=== PATIENT | male | born 1980 | race Caucasian/White ===

== ENCOUNTER 2017-12-07 18:38 | Emergency (ER) | payer SELFPAY ==
[2017-12-07 18:49] VITALS: BMI 25.8
--- NOTE | 2017-12-07 20:29 | PDOC ---
History of Present Illness - General Chief Complaint: Palpitations Stated Complaint: CHEST PAIN Time Seen by Provider: 12/07/17 20:28 - History of Present Illness Initial Comments: 37 year old male without any PMH presenting with palpitations and chest pain after a night of alcohol and cocaine usage from last night. He admits to using 6 -7 bags of cocaine and drinking approximately 20 beers up until 6 hours before presentation. Describes his chest pain as a substernal pressure, non-radiating, non-pleuritic, non-exertional and does not describe co-presenting SOB, nausea, vomiting, diaphoresis, constipation, or other symptoms. He states he only use cocaine and alcohol on the weekends. 12/07/17 20:44 Past History - Past Medical History Allergies/Adverse Reactions: Allergies Allergy/AdvReac Type Severity Reaction Status Date / Time No Known Allergies Allergy Verified 12/07/17 18:48 Home Medications: Ambulatory Orders NK [No Known Home Medication] 12/07/17 COPD: No - Suicide/Smoking/Psychosocial Hx Smoking History: Current every day smoker Information on smoking cessation initiated: No Review of Systems - Review of Systems Constitutional: No: Chills, Diaphoresis, Fever HEENTM: No: Recent change in vision, Double Vision, Cataracts Respiratory: No: Cough, Shortness of Breath Cardiac (ROS): Yes: Chest Pain, Irregular Heart Rate, Lightheadedness, Palpitations. No: Syncope, Chest Tightness ABD/GI: Yes: Nausea. No: Diarrhea, Vomiting : No: Dysuria, Discharge, Frequency Neurological: No: Headache, Numbness, Paresthesia, Tremors, Weakness Psychiatric: No: Anxiety, Depression Hematologic/Lymphatic: No: Anemia, Blood Clots, Easy Bleeding *Physical Exam - Vital Signs Last Vital Signs Temp Pulse Resp BP Pulse Ox 98.1 F 109 H 20 137/78 99 12/07/17 18:41 12/07/17 18:41 12/07/17 18:41 12/07/17 18:41 12/07/17 18:41 - Physical Exam General Appearance: Yes: Nourished, Appropriately Dressed. No: Apparent Distress HEENT: positive: EOMI, VALDEZ, Normal ENT Inspection, Normal Voice, Other (eyes appear sunken) Neck: positive: Trachea midline, Normal Thyroid, Supple. negative: Tender, Rigid Respiratory/Chest: positive: Lungs Clear, Normal Breath Sounds. negative: Chest Tender, Respiratory Distress, Accessory Muscle Use Cardiovascular: positive: Irregularly Irregular. negative: Regular Rhythm, Regular Rate Gastrointestinal/Abdominal: positive: Normal Bowel Sounds, Flat, Soft. negative : Tender Musculoskeletal: positive: Normal Inspection. negative: Decreased Range of Motion Extremity: positive: Normal Capillary Refill, Normal Inspection, Normal Range of Motion. 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 Vital signs, EKG, and labs only significant for non-specific repolarization abnormality with tachycardia. Two sets of troponins negative, and palpitations ceased after 1 L NS. EKG normalized no longer demonstrating PVCs (R 77, VA 198, QRS 96, QTc 448, normal axis, no ST elevations) Patient no longer symptomatic so he was DC'd with appropriate follow up and return precautions as well as drug counseling. 12/07/17 23:57 *DC/Admit/Observation/Transfer Diagnosis at time of Disposition: Palpitations, Cocaine abuse, ETOH abuse - Discharge Dispostion Disposition: HOME Condition at time of disposition: Improved Decision to Admit order: No - Referrals Referrals: [facility] [place] [Provider Group] - Patient Instructions Printed Discharge Instructions: DI for Alcohol Abuse, DI for Cocaine Use Disorder, DI for Drug Abuse and Drug Addiction Additional Instructions: Por favor mike de consumir cocana y alcohol. Estas drogas pueden matarte !!! Por favor tyson un seguimiento con elaine mdico de atencin primaria. Si no tiene je, use la clnica que colocamos en neeru formulario. Por favor regrese al departamento de emergencias si tiene sntomas nuevos o que empeoran. Print Language: BELARUSIAN - Post Discharge Activity
--- NOTE | 2017-12-07 20:43 | PDOC ---
Attending Attestation - Resident Resident Name: HelenaValenciacrystal - ED Attending Attestation I have performed the following: I have examined & evaluated the patient, The case was reviewed & discussed with the resident, I agree w/resident's findings & plan - HPI HPI: 12/07/17 22:58 Pt comes with chest pains after cocaine use. He uses regularly on weekends and combines it with alcohol; drinks 15-20 beers on weekends. Pt is employed and works on [employer]. He has no PMHx and he otherwise appears well. - Physicial Exam PE: 12/07/17 23:00 Agree with resident exam - Medical Decision Making 12/07/17 23:00 Pt will follow with budget assistant, so long as 2 enzymes are normal. He has frequent PVCs on EKG.
[2017-12-07 20:49] LABS: BASO % 0.3 % (0-2.0); EOS % 0.3 % (0-4.5); HEMATOCRIT 44.6 % (35.4-49); HEMOGLOBIN 14.8 GM/dL (11.7-16.9); LYMPH % 18.5 % (8-40); MCH 27.1 pg (25.7-33.7); MCHC 33.2 g/dl (32.0-35.9); MEAN CELL VOLUME 81.7 fl (80-96); MEAN PLT VOLUME 8.5 fl (7.5-11.1); MONO % 7.7 % (3.8-10.2); NEUT % 73.2 % (42.8-82.8); PLATELET COUNT 246 K/MM3 (134-434); RBC 5.46 M/mm3 (4.00-5.60); RDW 12.7 % (11.9-15.9); WHITE BLOOD COUNT 10.9 K/mm3 (4.0-10.0)
[2017-12-07 21:02] LABS: URINE APPEARANCE CLEAR; URINE BILIRUBIN NEGATIVE (<2.0 mg/dL); URINE COLOR YELLOW; URINE GLUCOSE (UA) NEGATIVE (NEGATIVE); URINE KETONE NEGATIVE (NEGATIVE); URINE LEUK ESTERASE NEGATIVE (NEGATIVE); URINE NITRITE NEGATIVE (NEGATIVE); URINE PROTEIN NEGATIVE (NEGATIVE); URINE UROBILINOGEN NEGATIVE mg/dL (0.2-1.0)
[2017-12-07 21:04] LABS: INR 1.11 (0.82-1.09); PROTHROMBIN TIME (PATIENT) 12.5 SEC (9.7-13.0)
[2017-12-07 21:10] LABS: ANION GAP 18 (8-16); BILIRUBIN,TOTAL 0.8 mg/dL (0.2-1.0); BLOOD UREA NITROGEN 10 mg/dL (7-18); CALCIUM 8.8 mg/dL (8.5-10.1); CHLORIDE 131 mmol/L (98-107); CO2 25 mmol/L (21-32); GLUCOSE,RANDOM 84 mg/dL (74-106); POTASSIUM 4.7 mmol/L (3.5-5.1); SGOT/AST 24 U/L (15-37); SGPT/ALT 39 U/L (12-78)
[2017-12-07 21:13] LABS: ALK PHOS 97 U/L (45-117)
[2017-12-07 21:16] LABS: SODIUM 174 mmol/L (136-145)
[2017-12-07 21:16] LABS: COCAINE, UR POSITIVE ng/ml (CUTOFF=300); METHADONE, UR NEGATIVE ng/ml (CUTOFF=300); OPIATES, URI NEGATIVE ng/ml (CUTOFF=300); PHENCYCLIDINE,URINE NEGATIVE ng/ml (CUTOFF=25); URINE AMPHETAMINES NEGATIVE ng/ml (CUTOFF=500); URINE BARBITURATES NEGATIVE ng/ml (CUTOFF=200); URINE BENZODIAZEPINES NEGATIVE ng/ml (CUTOFF=200)
[2017-12-07] MEDS ORDERED: ASPIRIN 81 MG CHEWABLE TABLETS ONE (21:17)
[2017-12-07] MEDS ORDERED: ASPIRIN 81 MG CHEWABLE TABLETS PO ONE (21:17)
[2017-12-07] MEDS ORDERED: DEXTROSE 5%-WATER - 1,000 ML IV SCH (21:30)
[2017-12-07 21:53] VITALS: BP 133/82; PULSE 82; TEMP 98.3
[2017-12-07 21:57] LABS: ANION GAP 7 (8-16); BILIRUBIN,TOTAL 0.8 mg/dL (0.2-1.0); BLOOD UREA NITROGEN 11 mg/dL (7-18); CALCIUM 8.8 mg/dL (8.5-10.1); CHLORIDE 107 mmol/L (98-107); CO2 27 mmol/L (21-32); GLUCOSE,RANDOM 88 mg/dL (74-106); POTASSIUM 3.9 mmol/L (3.5-5.1); SGOT/AST 24 U/L (15-37); SGPT/ALT 38 U/L (12-78); SODIUM 141 mmol/L (136-145); TOT PROT 7.9 g/dl (6.4-8.2)
[2017-12-07 21:59] LABS: ALK PHOS 96 U/L (45-117)
[2017-12-07] MEDS ORDERED: SODIUM CHLORIDE 0.9% 500 ML INFUS.BAG IV ONE (22:35)
--- NOTE | 2017-12-08 09:25 | EKG ---
Test Reason : Blood Pressure : / mmHG Vent. Rate : 080 BPM Atrial Rate : 080 BPM P-R Int : 194 ms QRS Dur : 084 ms QT Int : 380 ms P-R-T Axes : 064 057 047 degrees QTc Int : 438 ms SINUS RHYTHM WITH FREQUENT PREMATURE VENTRICULAR COMPLEXES ST ELEVATION, CONSIDER EARLY REPOLARIZATION WHEN COMPARED WITH ECG OF 07-DEC-2017 18:51, PREMATURE VENTRICULAR COMPLEXES ARE NOW PRESENT NONSPECIFIC T WAVE ABNORMALITY NO LONGER EVIDENT IN INFERIOR LEADS T WAVE AMPLITUDE HAS INCREASED IN LATERAL LEADS Confirmed by OCTAVIO PALACIOS MD ([id number]) on 12/08/2017 9:25:50 AM Referred By: Confirmed By:OCTAVIO PALACIOS MD
--- NOTE | 2017-12-08 09:25 | EKG ---
Test Reason : Blood Pressure : / mmHG Vent. Rate : 077 BPM Atrial Rate : 077 BPM P-R Int : 198 ms QRS Dur : 096 ms QT Int : 396 ms P-R-T Axes : 052 068 049 degrees QTc Int : 448 ms NORMAL SINUS RHYTHM NORMAL ECG WHEN COMPARED WITH ECG OF 07-DEC-2017 21:10, PREMATURE VENTRICULAR COMPLEXES ARE NO LONGER PRESENT Confirmed by OCTAVIO PALACIOS MD ([id number]) on 12/08/2017 9:25:04 AM Referred By: Confirmed By:OCTAVIO PALACIOS MD
--- NOTE | 2017-12-16 15:05 | EKG ---
Test Reason : Blood Pressure : / mmHG Vent. Rate : 105 BPM Atrial Rate : 105 BPM P-R Int : 172 ms QRS Dur : 086 ms QT Int : 326 ms P-R-T Axes : 060 056 042 degrees QTc Int : 430 ms SINUS TACHYCARDIA POSSIBLE LEFT ATRIAL ENLARGEMENT BORDERLINE ECG NO PREVIOUS ECGS AVAILABLE Confirmed by RODDY SANCHEZ MD ([id number]) on 12/16/2017 3:05:00 PM Referred By: Confirmed By:RODDY SANCHEZ MD
== END 2017-12-08 00:52 | disposition home or self-care (01) ==
LOC: JER 18:38
DX: R07.89 Other chest pain (principal); F14.10 Cocaine abuse, uncomplicated; F10.10 Alcohol abuse, uncomplicated
CPT/HCPCS: 36415; 80053; 80307; 81003; 82550; 82553; 84443; 84484; 85025; 85610; 93005; 93010; 99283-25